=== PATIENT | female | born 1945 | race African-American/Black ===

== ENCOUNTER 2017-10-13 13:47 | Inpatient (IN) ==
[2017-10-13 20:04] LABS: Hematocrit 34.5 VOL% (35.7-47.0); Immature Granulocytes % 0.4 %; Immature Granulocytes Absolute 0.04 #; Lymphocytes # 0.6 10*3/uL (1.4-4.0); Lymphocytes % 6.7 % (21.3-54.2); Mean Corpuscular HGB Conc 31.9 GM/DL (32-36); Mean Corpuscular Hemoglobin 31 PG (27-34); Mean Corpuscular Volume 96.9 FL (87-102); Mean Platelet Volume 10.1 FL (9.6-12.0); Monocytes # 0.1 10*3/uL (0.11-0.8); Monocytes % 1.3 % (1.7-12.7); Neutrophils # 8.5 10*3/uL (1.4-7.4); Neutrophils % 91.6 % (38.7-73.9); Platelet Count 225 T/CUMM (130-400); Red Blood Count 3.56 MC/CUMM (3.8-5.5); Red Cell Distribution Width 15.9 % (9.3-17.3); White Blood Count 9.3 T/CUMM (4-12)
[2017-10-13] MEDS ORDERED: ONDANSETRON 4 MG/2 ML VIAL IV STA (21:20)
[2017-10-13] MEDS ORDERED: MORPHINE 2 MG/1 ML SYRINGE IV STA (21:20)
[2017-10-13] MEDS ORDERED: ONDANSETRON 4 MG/2 ML VIAL ONE (21:22)
[2017-10-13] MEDS ORDERED: MORPHINE 2 MG/1 ML SYRINGE ONE ×2 (21:22→21:23)
[2017-10-13 21:34] LABS: Calcium 9.4 MG/DL (8.5-10.1); Osmolality,Calculated 287.5 MOS/KG (273-304)
[2017-10-13] MEDS ORDERED: HYDROmorphone 2 MG/1 ML VIAL IV PRN (21:56)
[2017-10-14] MEDS ORDERED: GENTAMICIN INJ 80 MG in PREMIX 1 EACH IV ONE (06:52)
[2017-10-14] MEDS ORDERED: ceFAZolin 1,000 MG in SYRINGE 1 EACH IV ONE (06:52)
[2017-10-14 07:58] LABS: Basophils % 0.2 % (0.0-0.8); Hematocrit 30.7 VOL% (35.7-47.0); Immature Granulocytes % 0.6 %; Immature Granulocytes Absolute 0.06 #; Lymphocytes # 0.9 10*3/uL (1.4-4.0); Mean Corpuscular HGB Conc 32.6 GM/DL (32-36); Mean Corpuscular Hemoglobin 31 PG (27-34); Monocytes # 1.1 10*3/uL (0.11-0.8); Monocytes % 10.6 % (1.7-12.7); Neutrophils # 8.6 10*3/uL (1.4-7.4); Neutrophils % 80.6 % (38.7-73.9); Platelet Count 207 T/CUMM (130-400); Red Blood Count 3.23 MC/CUMM (3.8-5.5); Red Cell Distribution Width 16.1 % (9.3-17.3); White Blood Count 10.7 T/CUMM (4-12)
[2017-10-14 08:07] LABS: INR 1.1; PT Patient Result 11.2 SECS; Partial Thromboplastin Time 29.8 SECS (0-40)
[2017-10-14 08:22] LABS: Calcium 8.3 MG/DL (8.5-10.1); Osmolality,Calculated 294.1 MOS/KG (273-304); Potassium 4.2 MMOL/L (3.5-5.1)
[2017-10-14] MEDS: SODIUM CHLORIDE 0.9% 1,000 ML IV SCH ×2 (09:10→12:40)
[2017-10-14] MEDS ORDERED: TRANEXAMIC ACID 1,000 MG/10 ML VIAL IV ONE (09:45)
[2017-10-14] MEDS: CINACALCET 30 MG TABLET PO SCH (09:47)
[2017-10-14] MEDS: CALCIUM ACETATE 667 MG CAPSULE PO SCH ×3 (09:47→17:08)
[2017-10-14] MEDS ORDERED: TOBRAMYCIN 1.2 GM VIAL TOP ONE (10:03)
[2017-10-14] MEDS ORDERED: BACITRACIN OINT 0.9 GM PACK TOP ONE (10:31)
[2017-10-14] MEDS ORDERED: oxyCODONE IR 5 MG TABLET PO PRN ×2 (11:08)
[2017-10-14] MEDS ORDERED: GLYCOPYRROLATE 0.4 MG/2 ML VIAL ONE (11:13)
[2017-10-14] MEDS ORDERED: PHENYLEPHRINE DRIP 20 MG/250 ML PREMIX IV ONE (11:14)
[2017-10-14] MEDS ORDERED: KETAMINE 500 MG/10 ML VIAL ONE (11:14)
[2017-10-14] MEDS ORDERED: PROPOFOL 200 MG/20 ML VIAL IV ONE (11:14)
[2017-10-14] MEDS ORDERED: GLYCOPYRROLATE 0.4 MG/2 ML VIAL IV ONE (11:15)
[2017-10-14] MEDS ORDERED: MIDAZOLAM 2 MG/2 ML VIAL ONE (11:15)
[2017-10-14] MEDS: predniSONE 20 MG TABLET PO SCH (12:43)
[2017-10-14] MEDS: ACETAMINOPHEN 500 MG TABLET PO SCH ×2 (16:20→21:32)
[2017-10-14] MEDS: ceFAZolin 1,000 MG in SYRINGE 1 EACH IV SCH ×2 (17:07→23:54)
[2017-10-14] MEDS: DOCUSATE SODIUM 100 MG CAPSULE PO SCH (21:32)
[2017-10-15] MEDS ORDERED: diphenhydrAMINE CAP 25 MG CAPSULE ONE (00:12)
[2017-10-15] MEDS: diphenhydrAMINE CAP 25 MG CAPSULE PO PRN ×4 (00:13→20:57)
[2017-10-15] MEDS: ACETAMINOPHEN 500 MG TABLET PO SCH ×2 (02:21→09:29)
[2017-10-15 03:15] LABS: Basophils % 0.1 % (0.0-0.8); Eosinophils % 0.2 % (0.00-10.9); Hematocrit 25.6 VOL% (35.7-47.0); Hemoglobin 8.5 GM/DL (12.0-16.0); Immature Granulocytes % 0.4 %; Immature Granulocytes Absolute 0.04 #; Lymphocytes # 0.5 10*3/uL (1.4-4.0); Lymphocytes % 4.7 % (21.3-54.2); Mean Corpuscular HGB Conc 33.2 GM/DL (32-36); Mean Corpuscular Hemoglobin 31 PG (27-34); Mean Corpuscular Volume 93.8 FL (87-102); Mean Platelet Volume 10.6 FL (9.6-12.0); Monocytes % 10.5 % (1.7-12.7); Neutrophils # 8.3 10*3/uL (1.4-7.4); Neutrophils % 84.1 % (38.7-73.9); Platelet Count 150 T/CUMM (130-400); Red Blood Count 2.73 MC/CUMM (3.8-5.5); White Blood Count 9.8 T/CUMM (4-12)
[2017-10-15 03:39] LABS: Calcium 8.6 MG/DL (8.5-10.1); Osmolality,Calculated 276.7 MOS/KG (273-304); Osmolality,Calculated 277.7 MOS/KG (273-304); Potassium 3.9 MMOL/L (3.5-5.1)
[2017-10-15 05:33] LABS: Lymphocytes 6 % (20-55); Segmented Neutrophils 85 % (50-85); Total Cells Counted 100
[2017-10-15 05:35] LABS: Anisocytosis Slight; Hypochromasia 2+; Microcytosis Slight; Platelet Estimate Normal
[2017-10-15] MEDS: CALCIUM ACETATE 667 MG CAPSULE PO SCH ×3 (09:26→16:50)
[2017-10-15] MEDS: DOCUSATE SODIUM 100 MG CAPSULE PO SCH ×2 (09:27→20:56)
[2017-10-15] MEDS: ASPIRIN EC 81 MG TABLET PO SCH (09:27)
[2017-10-15] MEDS: CINACALCET 30 MG TABLET PO SCH ×2 (09:28)
[2017-10-15] MEDS: predniSONE 20 MG TABLET PO SCH (09:28)
[2017-10-15] MEDS: SODIUM CHLORIDE 0.9% 1,000 ML IV SCH (10:21)
[2017-10-15] MEDS: ACETAMINOPHEN 325 MG TABLET PO PRN (16:52)
[2017-10-16] MEDS: MAGNESIUM HYDROXIDE SUSP 30 ML UDCUP PO PRN ×3 (09:33→22:40)
[2017-10-16] MEDS: ACETAMINOPHEN 325 MG TABLET PO PRN ×2 (09:33→18:58)
[2017-10-16] MEDS: diphenhydrAMINE CAP 25 MG CAPSULE PO PRN ×2 (09:36→15:45)
[2017-10-16] MEDS: ASPIRIN EC 81 MG TABLET PO SCH (09:37)
[2017-10-16] MEDS: DOCUSATE SODIUM 100 MG CAPSULE PO SCH ×2 (09:38→21:08)
[2017-10-16] MEDS: CALCIUM ACETATE 667 MG CAPSULE PO SCH ×3 (09:38→17:53)
[2017-10-16] MEDS: predniSONE 20 MG TABLET PO SCH (09:38)
[2017-10-16] MEDS: CINACALCET 30 MG TABLET PO SCH ×2 (09:39)
[2017-10-17] MEDS: predniSONE 20 MG TABLET PO SCH ×2 (07:53→08:55)
[2017-10-17] MEDS: ASPIRIN EC 81 MG TABLET PO SCH ×2 (07:53→08:54)
[2017-10-17] MEDS: CINACALCET 30 MG TABLET PO SCH ×2 (07:53→08:55)
[2017-10-17] MEDS: CALCIUM ACETATE 667 MG CAPSULE PO SCH ×2 (07:53→12:32)
[2017-10-17 07:56] VITALS: BP 166/52
[2017-10-17] MEDS: DOCUSATE SODIUM 100 MG CAPSULE PO SCH (08:55)
[2017-10-17] MEDS ORDERED: HEPARIN 10,000 UNIT/10 ML VIAL IV PRN (11:23)
== END 2017-10-17 14:50 | DRG 469 ==
LOC: N.ED 13:47 → SUATTDRO 21:53 → N.EDINP 21:53 → N.3E 22:39
PROVIDERS: ADMIT Internal Medicine; ATTEND Internal Medicine